=== PATIENT | female | born 1955 | race Caucasian/White ===

== ENCOUNTER 2017-01-13 10:07 | Emergency (ER) | payer BC ==
[2017-01-13] MEDS ORDERED: Aspirin SUPP* 300 MG PR ONE (10:43)
[2017-01-13] MEDS ORDERED: NS 0.9% 1000 ML* 1,000 ML IV SCH (10:45)
[2017-01-13 11:23] LABS: Hematocrit 40 % (35-47); Mean Corpuscular HGB Conc 32 g/dl (31-36); Mean Corpuscular Hemoglobin 29 pg (27-31); Mean Corpuscular Volume 89 fL (80-97); Mean Platelet Volume 9 um3 (7.4-10.4); Red Blood Count 4.54 10^6/ul (4.0-5.4); Red Cell Distribution Width 15 % (10.5-15); White Blood Count 39.6 10^3/ul (3.5-10.8)
[2017-01-13 11:28] LABS: Add Diff/Slide Review? Slide Review Added; Comments Flag Yes
[2017-01-13 11:39] LABS: Albumin 3.9 g/dL (3.2-5.2); Calcium 9.1 mg/dL (8.6-10.3); EGFR African American 97.7 (>60); Globulin 2.7 g/dL (2-4); Total Bilirubin 0.3 mg/dL (0.2-1.0); Total Protein 6.6 g/dL (6.4-8.9)
[2017-01-13 12:28] LABS: Immature Granulocytes 28 % (0-9); Metamyelocytes % 2 % (0-2); Myelocytes % 10 % (0-1); Neutrophil % 51 % (38-83); Reactive Lymph % 5 % (0-6)
[2017-01-13 12:29] LABS: RBC Morphology Normal (Normal)
[2017-01-13 12:35] VITALS: BP 145/60
--- NOTE | 2017-01-14 18:50 | ED ---
Addis Gray Thomas, scribed for Sumanth Rodriguez MD on 01/13/17 at 1125 . GI/ HPI - HPI Summary HPI Summary: The pt is a 61 y/o F with a presenting to the ED c/o two episodes of bloody stools earlier today. She describes the stool as brown with red blood and black streaks. There were no blood clots. 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 She began a chemotherapy treatment last week. The patient additionally c/o generalized weakness, malaise, abd bloating, and mild rectal discomfort. She rates her current pain 1/10. She is not on blood thinners. Her last colonoscopy was 5 years ago at [place]. She is accompanied by a female family member. - History of Current Complaint Chief Complaint: EDGIBleed Time Seen by Provider: 01/13/17 10:37 Stated Complaint: BLOOD IN STOOL Hx Obtained From: Patient Onset/Duration: Started Hours Ago - bloody stools earlier today, Resolved Timing: Intermittent Pain Intensity: 1 Associated Signs and Symptoms: Positive: Weakness - generalized, Other: - Malaise, abd bloating, mild rectal discomfort Aggravating Factor(s): Nothing Alleviating Factor(s): Nothing - Allergy/Home Medications Allergies/Adverse Reactions: Allergies Allergy/AdvReac Type Severity Reaction Status Date / Time No Known Allergies Allergy Verified 03/10/13 14:49 PMH/Surg Hx/FS Hx/Imm Hx Previously Healthy: No - Breast CA with mets to lungs Endocrine/Hematology History: Denies: Hx Diabetes Cardiovascular History: Denies: Hx Myocardial Infarction GI History: Reports: Hx Diverticulosis - Cancer History Cancer Type, Location and Year: breast cancer with mets to lungs - Surgical History Surgery Procedure, Year, and Place: LEFT MASTECTOMY Infectious Disease History: No Infectious Disease History: Denies: Traveled Outside the [place] in Last 30 Days - Family History Known Family History: Positive: Other - Cancer - Social History Alcohol Use: None Hx Substance Use: No Substance Use Type: Reports: None Hx Tobacco Use: Yes Smoking Status (MU): Former Smoker Review of Systems Positive: Other - Malaise. Negative: Fever Positive: Other - Bloody stools (two episodes), abd bloating, mild rectal discomfort Positive: Weakness - generalized All Other Systems Reviewed And Are Negative: Yes Physical Exam - Summary Physical Exam Summary: VITAL SIGNS: Reviewed. GENERAL: Patient is a well-developed and nourished female who is lying comfortable in the stretcher. ~Patient is not in any acute respiratory distress. HEAD AND FACE: Normocephalic and atraumatic. EYES: PERRLA, EOMI x 2, No injected conjunctiva. EARS: Hearing grossly intact. Ear canals and tympanic membranes are WNL. MOUTH: Oropharynx within normal limits. NECK: Supple, trachea is midline, no adenopathy, no JVD. CHEST: Symmetric, no tenderness at palpation LUNGS: Clear to auscultation bilaterally. No wheezing or crackles. CVS: RRR, S1 and S2 present, no murmurs or gallops appreciated. ABDOMEN: Soft, non-tender. No signs of distention. Positive bowel sounds. No rebound no guarding, and no masses palpated. No abdominal bruit or pulsations. EXTREMITIES: FROM in all major joints, no edema, no cyanosis or clubbing. NEURO: Alert and oriented x 3. No acute neurological deficits. Speech is normal. SKIN: Dry and warm Rectal: external hemorrhoids, no gross blood or melena. Triage Information Reviewed: Yes Vital Signs On Initial Exam: Initial Vitals Temp Pulse Resp BP Pulse Ox 98.3 F 100 20 149/87 96 01/13/17 10:11 01/13/17 10:11 01/13/17 10:11 01/13/17 10:11 01/13/17 10:11 Vital Signs Reviewed: Yes - Lucian Coma Scale Coma Scale Total: 15 Diagnostics - Vital Signs Vital Signs Temp Pulse Resp BP Pulse Ox 01/13/17 10:11 98.3 F 100 20 149/87 96 - Laboratory Result Diagrams: 01/13/17 11:00 01/13/17 11:00 Lab Statement: Any lab studies that have been ordered have been reviewed, and results considered in the medical decision making process. - EKG 11:03 Cardiac Rate: NL - 93 BPM EKG Rhythm: Sinus Rhythm EKG Interpretation: No ST elevations. Nml axis. GIGU Course/Dx - Course Assessment/Plan: The pt is a 61 y/o F with a presenting to the ED c/o two episodes of bloody stools earlier today. She describes the stool as brown with red blood and black streaks. There were no blood clots. 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 She began a chemotherapy treatment last week. The patient additionally c/o generalized weakness, malaise, abd bloating, and mild rectal discomfort. She rates her current pain 1/10. She is not on blood thinners. Her last colonoscopy was 5 years ago at [place]. She is accompanied by a female family member. Tests show WBC 39.6, Hbg 13, Hct 40, and platelets 148. CMP is within normal limits. Occult blood is negative. In the ED course, the patient was hydrated. I believed the leukocytosis is secondary to the patient being given erythropoietin. The patients H&H is stable and the occult blood is negative; therefore, I believe the patient has bleeding from hemorrhoids. Therefore, the patient will be discharged home with follow up by primary care. The patient was instructed to return if she develops any abdominal cramping, tachycardia, dizziness, or rectal bleeding. The patient understands and agrees. - Diagnoses Provider Diagnoses: hemorrhoid GI bleed Discharge - Discharge Plan Condition: Stable Disposition: HOME Patient Education Materials: Gastrointestinal Bleeding (ED) Referrals: Jennyfer Lara MD [Primary Care Provider] - 3 Days Additional Instructions: Follow up with your primary care provider in 3 days. Return to the emergency department for any new or worsening symptoms. The documentation as recorded by the Addis manuel Thomas accurately reflects the service I personally performed and the decisions made by me, Sumanth Rodriguez MD.
== END 2017-01-13 12:09 | disposition home or self-care (01) ==
LOC: ED 10:07
DX: K64.4 Residual hemorrhoidal skin tags (principal); C50.919 Malignant neoplasm of unspecified site of unspecified female breast; C78.00 Secondary malignant neoplasm of unspecified lung; R53.1 Weakness; Z87.891 Personal history of nicotine dependence
CPT/HCPCS: 36415; 80053; 82270; 85025; 85610; 85730; 86850; 86900; 86901; 93005; 99282

== ENCOUNTER 2018-09-23 17:16 | Emergency (ER) | payer BC ==
[2018-09-23 18:03] VITALS: BP 137/86
--- NOTE | 2018-09-23 22:09 | UC ---
Abdominal Pain Female HPI - HPI Summary HPI Summary: Onset yesterday of watery diarrhea and intermittent right upper quadrant pain. She denies any nausea or vomiting. Has a history of breast cancer with metastases to the lungs and is currently on chemotherapy. Has had low-grade temperature of about 100. Is concerned about her symptoms given her immunosuppressed state. - History of Current Complaint Chief Complaint: UCAbdominalPain Stated Complaint: FEVER Time Seen by Provider: 09/23/18 18:07 Hx Obtained From: Patient Onset/Duration: Sudden Onset, Lasting Hours, Still Present Timing: Constant Severity Initially: Mild Severity Currently: Mild Pain Intensity: 1 Pain Scale Used: 0-10 Numeric Location: Discrete At: RUQ Radiates: No Character: Sharp Aggravating Factor(s): Nothing Alleviating Factor(s): Nothing Associated Signs and Symptoms: Positive: Diarrhea Allergies/Adverse Reactions: Allergies Allergy/AdvReac Type Severity Reaction Status Date / Time No Known Allergies Allergy Verified 09/23/18 18:55 PMH/Surg Hx/FS Hx/Imm Hx GI/ History: Diverticulitis Cancer History: Breast Cancer - Surgical History Surgical History: Yes Surgery Procedure, Year, and Place: colon fissure repair,. Hysterectomy, LEFT MASTECTOMY, BILATERAL LUNG TUMORS REMOVED, LEFT 07/2016,RT 10/2016 - Family History Known Family History: Positive: Other - Cancer - Social History Alcohol Use: Rare Substance Use Type: None Smoking Status (MU): Former Smoker Review of Systems All Other Systems Reviewed And Are Negative: Yes Constitutional: Positive: Fever Respiratory: Positive: Negative Cardiovascular: Positive: Negative Gastrointestinal: Positive: Abdominal Pain, Diarrhea Genitourinary: Positive: Negative Physical Exam Triage Information Reviewed: Yes Appearance: Well-Appearing, No Pain Distress, Well-Nourished Vital Signs: Initial Vital Signs Temp 99.5 F 09/23/18 17:55 Pulse 93 09/23/18 17:55 Resp 18 09/23/18 17:55 BP 137/86 09/23/18 17:55 Pulse Ox 96 09/23/18 17:55 Vital Signs Reviewed: Yes Eyes: Positive: Conjunctiva Clear ENT: Positive: Hearing grossly normal Neck: Positive: Supple Respiratory Exam: Normal Cardiovascular Exam: Normal Abdomen Description: Positive: Soft, Other: - RUQ TENDERNESS. Negative: CVA Tenderness (R), CVA Tenderness (L), Distended Musculoskeletal: Positive: No Edema Neurological: Positive: Alert Psychological: Positive: Age Appropriate Behavior Skin: Negative: Rashes Abd Pain Female Course/Dx - Course Course Of Treatment: PT OFFERED TRANSPORT TO THE ED BY AMBULANCE BUT DECLINES. ADVISED THAT BY NOT TRAVELING IN A MONITORED SETTING SHE COULD BE RISKING WORSENING OF HER CONDITION THAT COULD POSE A THREAT TO HER LIFE, HEALTH AND MEDICAL SAFETY. SHE VERBALIZES UNDERSTANDING AND CONTINUES TO DECLINE AMBULANCE TRANSFER. - Differential Dx/Diagnosis Provider Diagnosis: RUQ abdominal pain Discharge - Sign-Out/Discharge Documenting (check all that apply): Patient Departure All imaging exams completed and their final reports reviewed: No Studies - Discharge Plan Condition: Stable Disposition: TRANS HIGHER LVL OF CARE FAC Patient Education Materials: Abdominal Pain (ED) Referrals: Jennyfer Lara MD [Primary Care Provider] - If Needed Additional Instructions: GO DIRECT[facility] TO [facility] [place] FOR FURTHER EVALUATION. YOU HAVE DECLINED TRANSFER TO THE ED BY AMBULANCE. BE ADVISED THAT BY NOT TRAVELING IN A MONITORED SETTING YOU COULD BE RISKING WORSENING OF YOUR CONDITION THAT COULD POSE A THREAT TO YOUR LIFE, HEALTH AND MEDICAL SAFETY. - Billing Disposition and Condition Condition: STABLE Disposition: Trans Higher Lvl of Care Fac
== END 2018-09-23 18:25 | disposition short-term general hospital (02) ==
LOC: UCEAST 17:16
DX: R10.11 Right upper quadrant pain (principal); R50.9 Fever, unspecified; C50.919 Malignant neoplasm of unspecified site of unspecified female breast; C78.00 Secondary malignant neoplasm of unspecified lung; Z87.891 Personal history of nicotine dependence
CPT/HCPCS: 99212; G0463

== ENCOUNTER 2018-09-23 18:42 | Emergency (ER) | payer BC ==
[2018-09-23] MEDS ORDERED: NS 0.9% 1000 ML** 1,000 ML IV ONE (22:35)
[2018-09-23 23:04] LABS: ABS Basophils 0.1 10^3/ul (0-0.2); ABS Eosinophils 0.2 10^3/ul (0-0.6); ABS Lymphocytes 1.7 10^3/ul (1.0-4.8); ABS Neutrophils 10.4 10^3/ul (1.5-7.7); Eosinophil % 1.3 %; Hematocrit 38 % (35-47); Hemoglobin 12.6 g/dL (12.0-16.0); Lymphocyte % 12.5 %; Mean Corpuscular HGB Conc 33 g/dL (31-36); Mean Corpuscular Hemoglobin 29 pg (27-31); Mean Corpuscular Volume 89 fL (80-97); Mean Platelet Volume 7.1 fL (7.4-10.4); Platelet Count 241 10^3/uL (150-450); Red Blood Count 4.29 10^6 /uL (3.70-4.87); Red Cell Distribution Width 15 % (10-15); White Blood Count 13.3 10^3/uL (3.5-10.8)
[2018-09-23 23:12] LABS: Activated Partial Thrombo Time 40.6 seconds (26.0-38.0); INR 1.09 (0.82-1.09)
[2018-09-23 23:21] LABS: Albumin 3.8 g/dL (3.2-5.2); Albumin/Globulin Ratio 1.6 (1-3); C Reactive Protein 86.49 mg/L (<8.01); EGFR African American 86.1 (>60); EGFR Non-African American 71.2 (>60); Globulin 2.4 g/dL (2-4); Magnesium 1.9 mg/dL (1.9-2.7); Total Bilirubin 0.5 mg/dL (0.2-1.0); Total Protein 6.2 g/dL (6.4-8.9)
[2018-09-23] MEDS ORDERED: Iohexol 300* (CONTRAST) 10 ML SDV IV ONE (23:36)
[2018-09-24 00:53] LABS: Urine Appearance Clear; Urine Bacteria Absent (Absent); Urine Bilirubin Negative (Negative); Urine Blood Negative (Negative); Urine Color Straw; Urine Glucose Negative (Negative); Urine Ketones Negative (Negative); Urine Nitrite Negative (Negative); Urine Protein Negative (Negative); Urine Red Blood Cell Absent (Absent); Urine Specific Gravity 1.005 (1.010-1.030); Urine Squamous Epithelial Cell Present (Absent); Urine Urobilinogen Negative (Negative); Urine White Blood Cell 2+(11-20/hpf) (Absent)
[2018-09-24] MEDS ORDERED: Levofloxacin TAB* 500 MG PO ONE (01:07)
[2018-09-24] MEDS ORDERED: metroNIDAZOLE TAB* 250 MG PO ONE (01:10)
--- NOTE | 2018-09-24 01:11 | ED ---
GI/ HPI - HPI Summary HPI Summary: Patient is a 63 y/o F presenting to ED with complaints of RUQ abdominal pain. Pain onset yesterday, 09/22/18, in the morning/early afternoon. Pain is intermittent and is noted to be aggravated by movement. She states that her temp was higher than normally, stating that she measured it to be 99 F at home. Nausea and diarrhea are endorsed but vomiting is denied. Patient reports that her temp is typically 97 F. She reports Hx of galbladder issues but denies Hx of stones. Patient has stage 4 breast cancer. On triage, pain is rated 1/10, nothing is noted to aggravate/alleviate Sx. Home medications and allergies are reviewed. - History of Current Complaint Chief Complaint: EDAbdPain Time Seen by Provider: 09/23/18 22:10 Stated Complaint: PAIN IN RT SIDE PER PT Hx Obtained From: Patient Onset/Duration: Started Days Ago - 09/22/18, Still Present Timing: Intermittent, Lasting Days - 09/22/18 Severity: Mild Current Severity: Mild Pain Intensity: 1 Location of Pain: RUQ Associated Signs and Symptoms: Positive: Nausea, Diarrhea, Abdominal Pain. Negative: Vomiting, Fever - on vitals, temp is 99.6 F Aggravating Factor(s): Movement, Movement Alleviating Factor(s): Nothing - Allergy/Home Medications Allergies/Adverse Reactions: Allergies Allergy/AdvReac Type Severity Reaction Status Date / Time No Known Allergies Allergy Verified 09/23/18 18:55 Home Medications: Home Medications Dexamethasone TAB* [Decadron TAB*] 8 mg PO BID 09/23/18 [History Confirmed 09/23] Levothyroxine Sodium 50 - 75 mcg PO DAILY 09/23/18 [History Confirmed 09/23/18] PMH/Surg Hx/FS Hx/Imm Hx Endocrine/Hematology History: Denies: Hx Diabetes Cardiovascular History: Denies: Hx Hypertension, Hx Myocardial Infarction, Hx Pacemaker/ICD Respiratory History: Denies: Hx Asthma GI History: Reports: Hx Diverticulosis History: Denies: Hx Dialysis, Hx Renal Disease Sensory History: Denies: Hx Hearing Aid Psychiatric History: Denies: Hx Panic Disorder - Cancer History Cancer Type, Location and Year: breast cancer with mets to lungs - Surgical History Surgery Procedure, Year, and Place: colon fissure repair,. Hysterectomy, LEFT MASTECTOMY, BILATERAL LUNG TUMORS REMOVED, LEFT 07/2016,RT 10/2016 Infectious Disease History: No Infectious Disease History: Reports: Hx Shingles - 1994 Denies: Traveled Outside the [place] in Last 30 Days - Family History Known Family History: Positive: Other - Cancer - Social History Alcohol Use: Rare Hx Substance Use: No Substance Use Type: Reports: None Hx Tobacco Use: Yes Smoking Status (MU): Former Smoker Review of Systems Negative: Fever - on vitals, temp 99.6 F Positive: Abdominal Pain, Diarrhea, Nausea. Negative: Vomiting All Other Systems Reviewed And Are Negative: Yes Physical Exam - Summary Physical Exam Summary: VITAL SIGNS: Reviewed. GENERAL: Patient is a well-developed and nourished female who is lying comfortable in the stretcher. Patient is not in any acute respiratory distress. HEAD AND FACE: No signs of trauma. No ecchymosis, hematomas or skull depressions. No sinus tenderness. EYES: PERRLA, EOMI x 2, No injected conjunctiva, no nystagmus. EARS: Hearing grossly intact. Ear canals and tympanic membranes are within normal limits. MOUTH: Oropharynx within normal limits. NECK: Supple, trachea is midline, no adenopathy, no JVD, no carotid bruit, no c- spine tenderness, neck with full ROM CHEST: Symmetric, no tenderness at palpation LUNGS: Clear to auscultation bilaterally. No wheezing or crackles. CVS: Regular rate and rhythm, S1 and S2 present, no murmurs or gallops appreciated. ABDOMEN: Soft, RUQ tenderness on deep palpation. No signs of distention. No rebound no guarding, and no masses palpated. Bowel sounds are normal. EXTREMITIES: FROM in all major joints, no edema, no cyanosis or clubbing. NEURO: Alert and oriented x 3. No acute neurological deficits. Speech is normal and follows commands. SKIN: Dry and warm Triage Information Reviewed: Yes Vital Signs On Initial Exam: Initial Vitals Temp Pulse Resp BP Pulse Ox 99.6 F 90 16 164/114 96 09/23/18 18:51 09/23/18 18:51 09/23/18 18:51 09/23/18 18:51 09/23/18 18:51 Vital Signs Reviewed: Yes Diagnostics - Vital Signs Vital Signs Temp Pulse Resp BP Pulse Ox 09/24/18 00:04 96 97 09/23/18 23:21 79 126/88 97 09/23/18 23:10 81 95 09/23/18 22:21 83 154/81 95 09/23/18 21:34 98.3 F 104 16 147/90 94 09/23/18 18:51 99.6 F 90 16 164/114 96 - Laboratory Lab Results: Lab Results 09/23/18 09/23/18 09/23/18 Range/Units 22:51 22:51 22:51 WBC 13.3 H (3.5-10.8) 10^3/uL RBC 4.29 (3.70-4.87) 10^6 /uL Hgb 12.6 (12.0-16.0) g/dL Hct 38 (35-47) % MCV 89 (80-97) fL MCH 29 (27-31) pg MCHC 33 (31-36) g/dL RDW 15 (10-15) % Plt Count 241 (150-450) 10^3/uL MPV 7.1 L (7.4-10.4) fL Neut % (Auto) 77.9 % Lymph % (Auto) 12.5 % Louisa % (Auto) 7.8 % Eos % (Auto) 1.3 % Baso % (Auto) 0.5 % Absolute Neuts (auto) 10.4 H (1.5-7.7) 10^3/ul Absolute Lymphs (auto) 1.7 (1.0-4.8) 10^3/ul Absolute Monos (auto) 1.0 H (0-0.8) 10^3/ul Absolute Eos (auto) 0.2 (0-0.6) 10^3/ul Absolute Basos (auto) 0.1 (0-0.2) 10^3/ul Absolute Nucleated RBC 0.0 10^3/ul Nucleated RBC % 0.0 INR (Anticoag Therapy) 1.09 (0.82-1.09) APTT 40.6 H (26.0-38.0) seconds Sodium 137 (135-145) mmol/L Potassium 4.0 (3.5-5.0) mmol/L Chloride 103 (101-111) mmol/L Carbon Dioxide 27 (22-32) mmol/L Anion Gap 7 (2-11) mmol/L BUN 13 (6-24) mg/dL Creatinine 0.81 (0.51-0.95) mg/dL Est GFR ( Amer) 86.1 (>60) Est GFR (Non-Af Amer) 71.2 (>60) BUN/Creatinine Ratio 16.0 (8-20) Glucose 122 H (70-100) mg/dL Calcium 9.0 (8.6-10.3) mg/dL Magnesium 1.9 (1.9-2.7) mg/dL Total Bilirubin 0.50 (0.2-1.0) mg/dL AST 15 (13-39) U/L ALT 8 (7-52) U/L Alkaline Phosphatase 71 (34-104) U/L C-Reactive Protein 86.49 H (<8.01) mg/L Total Protein 6.2 L (6.4-8.9) g/dL Albumin 3.8 (3.2-5.2) g/dL Globulin 2.4 (2-4) g/dL Albumin/Globulin Ratio 1.6 (1-3) Amylase 36 (29-103) U/L Lipase 21 (11.0-82.0) U/L Urine Color Urine Appearance Urine pH (5-9) Ur Specific [place] (1.010-1.030) Urine Protein (Negative) Urine Ketones (Negative) Urine Blood (Negative) Urine Nitrate (Negative) Urine Bilirubin (Negative) Urine Urobilinogen (Negative) Ur Leukocyte Esterase (Negative) Urine WBC (Auto) (Absent) Urine RBC (Auto) (Absent) Ur Squamous Epith Cells (Absent) Urine Bacteria (Absent) Urine Glucose (Negative) 09/24/18 Range/Units 00:11 WBC (3.5-10.8) 10^3/uL RBC (3.70-4.87) 10^6 /uL Hgb (12.0-16.0) g/dL Hct (35-47) % MCV (80-97) fL MCH (27-31) pg MCHC (31-36) g/dL RDW (10-15) % Plt Count (150-450) 10^3/uL MPV (7.4-10.4) fL Neut % (Auto) % Lymph % (Auto) % Louisa % (Auto) % Eos % (Auto) % Baso % (Auto) % Absolute Neuts (auto) (1.5-7.7) 10^3/ul Absolute Lymphs (auto) (1.0-4.8) 10^3/ul Absolute Monos (auto) (0-0.8) 10^3/ul Absolute Eos (auto) (0-0.6) 10^3/ul Absolute Basos (auto) (0-0.2) 10^3/ul Absolute Nucleated RBC 10^3/ul Nucleated RBC % INR (Anticoag Therapy) (0.82-1.09) APTT (26.0-38.0) seconds Sodium (135-145) mmol/L Potassium (3.5-5.0) mmol/L Chloride (101-111) mmol/L Carbon Dioxide (22-32) mmol/L Anion Gap (2-11) mmol/L BUN (6-24) mg/dL Creatinine (0.51-0.95) mg/dL Est GFR ( Amer) (>60) Est GFR (Non-Af Amer) (>60) BUN/Creatinine Ratio (8-20) Glucose (70-100) mg/dL Calcium (8.6-10.3) mg/dL Magnesium (1.9-2.7) mg/dL Total Bilirubin (0.2-1.0) mg/dL AST (13-39) U/L ALT (7-52) U/L Alkaline Phosphatase (34-104) U/L C-Reactive Protein (<8.01) mg/L Total Protein (6.4-8.9) g/dL Albumin (3.2-5.2) g/dL Globulin (2-4) g/dL Albumin/Globulin Ratio (1-3) Amylase (29-103) U/L Lipase (11.0-82.0) U/L Urine Color Straw Urine Appearance Clear Urine pH 6.0 (5-9) Ur Specific [place] 1.005 L (1.010-1.030) Urine Protein Negative (Negative) Urine Ketones Negative (Negative) Urine Blood Negative (Negative) Urine Nitrate Negative (Negative) Urine Bilirubin Negative (Negative) Urine Urobilinogen Negative (Negative) Ur Leukocyte Esterase 2+ A (Negative) Urine WBC (Auto) 2+(11-20/hpf) A (Absent) Urine RBC (Auto) Absent (Absent) Ur Squamous Epith Cells Present A (Absent) Urine Bacteria Absent (Absent) Urine Glucose Negative (Negative) Result Diagrams: 09/23/18 22:51 09/23/18 22:51 Lab Statement: Any lab studies that have been ordered have been reviewed, and results considered in the medical decision making process. - CT CT ABD/PEL CT Interpretation Completed By: Radiologist Summary of CT Findings: CT ABD/PEL IMPRESSION: 1. Colonic diverticulosis with acute transverse diverticulitis. 2. Hepatomegaly. THIS REPORT WAS REVIEWED BY DR. ZHU. - Ultrasound No standard instances Ultrasound Interpretation Completed By: Radiologist Summary of Ultrasound Findings: GALLBLADDER US IMPRESSION: 1. No acute findings. 2. A 1.4 cm left hepatic cyst. THIS REPORT WAS REVIEWED BY DR. ZHU. Re-Evaluation - Re-Evaluation First Eval Re-Evaluation Time: 01:07 Comment: Results of labs and tests were discussed with the patient. The patient will be discharged to home with Flagyl and Levaquin prescription and follow up with PCP. Strict return precautions were given. Patient is agreeable with plan. GIGU Course/Dx - Course Course Of Treatment: Patient is a 63 y/o F presenting to ED with complaints of RUQ abdominal pain. Pain onset yesterday, 09/22/18, in the morning/early afternoon. Pain is intermittent and is noted to be aggravated by movement. She states that her temp was higher than normally, stating that she measured it to be 99 F at home. Nausea and diarrhea are endorsed but vomiting is denied. Patient reports that her temp is typically 97 F. She reports Hx of galbladder issues but denies Hx of stones. Patient has stage 4 breast cancer. On physical exam, RUQ tenderness on deep palpation is noted. Labs showed WBC 13.3, MPV 7.1 , absolute neuts 10.4, absolute monos 1, APTT 40.6, glucose 122, CRP 86.49, total protein 6.2, lipase 21, amylase 36. UA showed 2+ leukocyte esterase, 2+ WBC, squamous epith cells present. GALLBLADDER US IMPRESSION: 1. No acute findings. 2. A 1.4 cm left hepatic cyst. CT ABD/PEL IMPRESSION: 1. Colonic diverticulosis with acute transverse diverticulitis. 2. Hepatomegaly. During ED course, patient received fluids, flagyl 500 mg PO, Levaquin 500 mg PO, and heparin 5 ml FLUSH ONCE. Results of labs and tests were discussed with the patient. The patient will be discharged to home with Flagyl and Levaquin prescription and follow up with PCP. Strict return precautions were given. Patient is agreeable with plan. - Diagnoses Provider Diagnoses: UTI (urinary tract infection), Diverticulitis Discharge - Sign-Out/Discharge Documenting (check all that apply): Patient Departure - discharge Patient Received Moderate/Deep Sedation with Procedure: No - Discharge Plan Condition: Stable Disposition: HOME Prescriptions: Levofloxacin TAB* [Levaquin TAB*] 500 mg PO DAILY #7 tab metroNIDAZOLE [Flagyl 500 MG TAB] 500 mg PO TID #20 tab Patient Education Materials: Diverticulitis (ED), Urinary Tract Infection in Women (ED) Referrals: Jennyfer Lara MD [Primary Care Provider] - 3 Days Additional Instructions: PLEASE RETURN TO THE ED IMMEDIATELY FOR WORSENING OR CONCERNING SYMPTOMS. FOLLOW UP WITH YOUR PRIMARY CARE PHYSICIAN WITHIN THREE DAYS. - Attestation Statements Document Initiated by Scribe: Yes Documenting Scribe: SIMA MOSES Provider For Whom Scribe is Documenting (Include Credential): GODFREY ZHU MD Scribe Attestation: SIMA Gray, scribed for GODFREY ZHU MD on 09/24/18 at 0308. Status of Scribe Document: Ready
[2018-09-24 01:53] VITALS: BP 130/70
--- NOTE | 2018-09-26 06:12 | PN ---
Progress Note - Progress Note Date of Service: 09/26/18 Note: patient's urine culture grew strep group B of 50-75,000. Patient placed on Levaquin. Should be sensitive to such.
== END 2018-09-24 01:41 | disposition home or self-care (01) ==
LOC: ED 18:42
DX: N39.0 Urinary tract infection, site not specified (principal); K57.92 Diverticulitis of intestine, part unspecified, without perforation or abscess without bleeding; Z87.891 Personal history of nicotine dependence; Z79.899 Other long term (current) drug therapy; R16.0 Hepatomegaly, not elsewhere classified; K76.89 Other specified diseases of liver
CPT/HCPCS: 36415; 74177; 76705; 80053; 81003; 81015; 82150; 83690; 83735; 85025; 85610; 85730; 86140; 87077; 87086; 99284; A9270-GY; J1642; Q9967

== ENCOUNTER 2018-11-26 06:22 | Day surgery (SDC) | payer BC ==
[2018-11-26] MEDS ORDERED: Midazolam* 1 MG/ML 2 ML VIAL (2 MG) ONE (07:02)
[2018-11-26] MEDS ORDERED: fentaNYL* 50 MCG/ML 2 ML VIAL (100 MCG VIAL) ONE (07:02)
[2018-11-26 08:07] VITALS: BP 141/81
[2018-11-26] MEDS ORDERED: Lidocaine 1% MPF ** 5 ML VIAL ONE (08:21)
[2018-11-26] MEDS ORDERED: acetaZOLAMIDE TAB* 250 MG ONE (08:21)
[2018-11-26] MEDS ORDERED: Ketorolac 0.5% OPHTH (NF) 0.5 % 5 ML BTL ONE (08:21)
[2018-11-26] MEDS ORDERED: Povidone Iodine 5% OPTH* 30 ML BTL ONE (08:21)
[2018-11-26] MEDS ORDERED: Phenylephrine OPHTH SOL 2.5%* 2 ML ONE (08:21)
[2018-11-26] MEDS ORDERED: Neomycin/Polymy/Dex OPHTH.OIN* 3.5 GM ONE (08:21)
[2018-11-26] MEDS ORDERED: Tropicamide 1% OPTH.SOL* BTL ONE (08:21)
[2018-11-26] MEDS ORDERED: Cyclopentolate 1% OPTH.SOL* 2 ML BTL ONE (08:21)
[2018-11-26] MEDS ORDERED: Tetracaine 0.5% OPTH.SOL 4 ML* 1 DROP BTL ONE (08:21)
--- NOTE | 2018-11-26 08:39 | OP ---
DATE OF OPERATION: 11/26/18 - [facility] DATE OF : 53 SURGEON: Zay Freeman MD ANESTHESIA: Monitored anesthesia care. PREOPERATIVE DIAGNOSIS: Cataract, left eye. POSTOPERATIVE DIAGNOSIS: Cataract, left eye. OPERATIVE PROCEDURE: Extracapsular cataract extraction of the left eye with intraocular lens implant. IMPLANT: SN60WF 22.0 diopter lens to the left eye. COMPLICATIONS: None. DESCRIPTION OF PROCEDURE: The patient was given phenylephrine 2.5 % and cyclopentolate 1% eye drops to the operative eye in the preoperative area. The patient was taken to the operating room where a time-out was taken to identify the correct patient, site, and side of surgery. The patient's left eye was prepped and draped in the usual sterile fashion with 5% Betadine. A second time- out was taken to verify the correct patient, side, and site of surgery, as well as the correct lens implant. A lid speculum was placed to the left eye. A 1mm paracentesis blade was used to make a clear corneal incision. Preservative-free 1% lidocaine was injected into the anterior chamber. DisCoVisc was then injected into the anterior chamber. A 2.75 mm keratome blade was used to make a triplanar incision. A cystotome initiated a capsulorrhexis, which was completed with Utrata forceps in a continuous and curvilinear manner. Hydrodissection of the lens was performed with BSS on a cannula. The lens could be spun in a capsular bag. The phacoemulsification handpiece was used with a divide-and- conquer technique to remove the nucleus. The I/A handpiece then removed the residual cortical lens material. DisCoVisc was injected to inflate the capsular bag. The planned SN60WF 22.0 diopter lens was injected into the capsular bag. The residual DisCoVisc was removed from the eye with the I/A handpiece. The corneal incisions were hydrated and no leaks occurred at physiologic pressure around 20 mmHg per palpation. The lid speculum was removed and drapes were removed. Maxitrol ointment was placed to the surface of the operative eye. An adhesive patch and shield was then placed on the operative eye. The patient was taken to the postoperative area in stable condition. [id number]/[facility] #: [id number] [facility]
[2018-11-26] MEDS ORDERED: Propofol* 10 MG/ML 20 ML BTL ONE (09:02)
== END 2018-11-26 08:15 | disposition home or self-care (01) ==
LOC: OREAST 06:22
PROVIDERS: ATTEND Student in an Organized Health Care Education/Training Program
DX: H25.812 Combined forms of age-related cataract, left eye (principal); Z85.3 Personal history of malignant neoplasm of breast; Z87.891 Personal history of nicotine dependence; R00.2 Palpitations; E03.9 Hypothyroidism, unspecified
CPT/HCPCS: A9270-GY; J2250; J2704; J3010; V2632

== ENCOUNTER 2019-01-25 16:12 | Emergency (ER) | payer BC ==
--- OUTSIDE RECORDS SUMMARY | 2019-01-25 16:17 | XMS REPORT | Continuity of Care Document ---
:1955 External Reference #:[id number] Author Name Zay Freeman M.D. Address [address] [place] [id number] Care Team Providers Name Role Phone Jennyfer Lara M.D. - Internal Medicine Care Team Information Help Desk Support Specialist Problems Active Problems Provider Date Malignant neoplasm of female breast Zay Freeman M.D. Onset: 08/01/2018 Combined form of senile cataract Zay Freeman M.D. Onset: 08/01/2018 Presence of intraocular lens Zay Freeman M.D. Onset: 11/20/2018 Social History Type Date Description Comments Sex Unknown ETOH Use Occasionally consumes alcohol Tobacco Use Start: Unknown End: Patient is a former smoker QUIT 7 YRS AGO Unknown Recreational Drug Use Denies Drug Use Smoking Status Reviewed: 12/13/18 Patient is a former smoker QUIT 7 YRS AGO Allergies, Adverse Reactions, Alerts Active Allergies Reaction Severity Comments Date Perfume 01/20/2015 Latex 01/20/2015 Medications Active Medications SIG Qnty Indications Ordering Date Provider Artificial Tears Zay 11/15/2018 1-0.3% Bradley Freeman Solution Lidocaine-Prilocaine Sofi No Bradley 2.5-2.5% Cream Levothyroxine Sodium Jennyfer Lara Bradley 50mcg Tablets Ibuprofen Take 1 Tablet By Unknown 600mg Tablets Mouth Every 6 Hours as Needed For Pain Dexamethasone 2 tablets 2 times per Sofi No 4mg day 2 Days before and M.DGordy Tablets the day of immunotherapy treatment Multivitamins daily Unknown Capsules Vitamin D3 Unknown 2000Unit Capsules Herceptin q 3 weeks Unknown 150mg Solution Rec History Medications Ciprofloxacin HCL instill one drop 5ml Zay Freeman, 11/15/2018 - 0.3% in the right eye M.D. 12/12/2018 Solution three times a day, start the day before surgery Ketorolac Tromethamine use one drop in 10ml Zay Freeman, 11/15/2018 - 0.5% the right eye M.D. 12/12/2018 Solution three times a day, start the day before surgery Prednisolone Acetate 1 drops right eye 10ml Zay Freeman, 11/15/2018 - 1% three times a day. M.D. 12/12/2018 Suspension taper as directed Immunizations Description No Information Available Vital Signs Description No Information Available Results Description No Information Available Procedures Date Code Description Status 11/26/2018 50038 Extracapsular Cataract Extraction W/Intraocular Lens Completed 11/19/2018 97875 Extracapsular Cataract Extraction W/Intraocular Lens Completed 11/15/2018 91040 Ophthalmic Biometry Completed 11/15/2018 78896 Ophthalmic Biometry Completed 11/15/2018 31165 Est Patient Intermediate Exam Completed 10/24/2018 45429 Est Patient Intermediate Exam Completed 08/01/2018 88364 New Patient Comprehensive Exam Completed Medical Devices Description No Information Available Encounters Description No Information Available Assessments Date Code Description Provider 12/13/2018 Z96.1 Presence of intraocular lens Zay Freeman M.D. 12/13/2018 H52.4 Presbyopia Zay Freeman M.D. 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 11/27/2018 Z96.1 Presence of intraocular lens Zay Freeman M.D. 11/26/2018 H25.812 Combined forms of age-related cataract, Zay Freeman M.D. left eye 11/20/2018 H25.812 Combined forms of age-related cataract, Zay Freeman M.D. left eye 11/20/2018 Z96.1 Presence of intraocular lens Zay Freeman M.D. 11/19/2018 H25.811 Combined forms of age-related cataract, Zay Freeman M.D. right eye 11/15/2018 H25.811 Combined forms of age-related cataract, Zay Freeman M.D. right eye 11/15/2018 H25.812 Combined forms of age-related cataract, Zay Freeman M.D. left eye 11/08/2018 H25.811 Combined forms of age-related cataract, Zay Freeman M.D. right eye 11/08/2018 H25.812 Combined forms of age-related cataract, Zay Freeman M.D. left eye 10/24/2018 H25.813 Combined forms of age-related cataract, Zay Freeman M.D. bilateral 08/01/2018 H25.813 Combined forms of age-related cataract, Zay Freeman M.D. bilateral Plan of Treatment 12/13/2018 - Zay Freeman M.D.Z96.1 Presence of intraocular lensComments: Smoking can increase the risk of developing or worsening any eye related disease , as well as affect your overall health. If you are a smoker, we strongly recommend that you quit.If you are not a smoker, we strongly recommend that you do not start. Your lens implant looks stable in both eyes at this time. You should be done, or almost done with your drops at this time according to your surgical calendar. I have given you a prescription for glasses. If you have any questions, please feel free to call our office at .H52.4 PresbyopiaComments:You have presbyopia. This is when the lens in your eye loses the ability to change focus, and happens as we age. A pair of reading glasses will help you see up close. YOU CAN TRY +2.00 OR +2.50 OVER THE COUNTER READING GLASSES FOR YOUR NEAR VISION.H43.812 Vitreous degeneration, left eyeFollow up:1 Year Follow Up DFE You can expect to have your eyes dilated at your next visit. If Dr. Freeman orders any additional testing, it may require extra time. We recommend that you bring sunglasses, as dilation drops often make you light sensitive until they wear off. We always recommend you bring someone to drive you home if you are uncomfortable driving with your eyes dilated. If you have any questions before your next visit, feel free to call our office at . Functional Status Description No Information Available Mental Status Description No Information Available Referrals Description No Information Available
[2019-01-25 16:37] VITALS: BP 148/89
--- NOTE | 2019-01-25 17:05 | UC ---
Complaint Female HPI - HPI Summary HPI Summary: 63-year-old female who states that she had an IV treatment of medication last week for stage IV breast cancer. She has a port in place. She states a couple days after her treatment she ate some eggs salad with Daquan lattice and the next day she awakened with an upset stomach and diarrhea. She has had diarrhea over the past 3 days which resolves when she takes and antidiarrheal medicine. When that wears off she has diarrhea again. She states in the past 24 hours she 's had 6 bouts of diarrhea. No nausea, no abdominal pain however she states that her urine smells very strongly. She states her diarrhea is more yellow and soft as opposed to watery diarrhea. No other family members are ill. She states today she had a fever for 101 about 5 hours ago, took Tylenol and felt much better and now her fever has resolved. She did state that in the past when she had the IV treatment for the breast cancer she would get diarrhea however she gets this treatment every 3 months and the past few time she's not had diarrhea. Patient has well water at home however she states she drinks bottled water. No other family members are ill. - History Of Current Complaint Chief Complaint: UCGI Stated Complaint: URINARY COMPLAINT Time Seen by Provider: 01/25/19 16:47 Hx Obtained From: Patient ?: No Onset/Duration: Gradual Onset Timing: Intermittent Severity Initially: Mild Severity Currently: Mild Pain Intensity: 2 Aggravating Factor(s): Nothing Alleviating Factor(s): Nothing Associated Signs And Symptoms: Positive: Fever - She had a fever over 101 about 5 hours ago, took some Tylenol and that has resolved and has not returned., Back Pain - Patient has some mild low back pain today. - Allergies/Home Medications Allergies/Adverse Reactions: Allergies Allergy/AdvReac Type Severity Reaction Status Date / Time latex Allergy SKIN Verified 01/25/19 16:37 IRRITATION, RASH Home Medications: Home Medications Acetaminophen [Tylenol] 325 mg PO Q6HR 01/25/19 [History Confirmed 01/25/19] Loperamide HCl [Anti-Diarrheal] 2 mg PO Q6HR 01/25/19 [History Confirmed ] Trastuzumab* [Herceptin*] 150 mg IV SEE INSTRUCTIONS 01/25/19 [History Confirmed 01/25/19] PMH/Surg Hx/FS Hx/Imm Hx Previously Healthy: Yes Endocrine History: Thyroid Disease Cancer History: Breast Cancer - Patient currently gets treatments through a port every 3 months for stage IV breast cancer. - Surgical History Surgical History: Yes Surgery Procedure, Year, and Place: colon fissure repair,. Hysterectomy, LEFT MASTECTOMY, BILATERAL LUNG TUMORS REMOVED, LEFT 07/2016,RT 10/2016 - Family History Known Family History: Positive: Other - Cancer - Social History Alcohol Use: Rare Substance Use Type: None Smoking Status (MU): Former Smoker Amount Used/How Often: 1 PPD X 40 YEARS Have You Smoked in the Last Year: No When Did the Patient Quit Smoking/Using Tobacco: 12 YEARS AGO Review of Systems All Other Systems Reviewed And Are Negative: Yes Constitutional: Positive: Fever - Fever earlier today which has resolved. Gastrointestinal: Positive: Diarrhea - Diarrhea approximate 6 times a day past 24 hours. Denies any nausea or vomiting. She denies abdominal pain however does state that she is extremely bloated. She states that's normalfor her to get bloated whenever she has any kind of GI upset. Is Patient Immunocompromised?: No Physical Exam Triage Information Reviewed: Yes Appearance: Well-Appearing, No Pain Distress, Well-Nourished Vital Signs: Initial Vital Signs Temp 98.2 F 01/25/19 16:30 Pulse 98 01/25/19 16:30 Resp 16 01/25/19 16:30 BP 148/89 01/25/19 16:30 Pulse Ox 95 01/25/19 16:30 Vital Signs Reviewed: Yes Eyes: Positive: Conjunctiva Clear ENT: Positive: Hearing grossly normal, Pharynx normal, TMs normal, Uvula midline Neck: Positive: Supple, Nontender, No Lymphadenopathy Respiratory: Positive: Lungs clear, Normal breath sounds, No respiratory distress, No accessory muscle use Cardiovascular: Positive: RRR, No Murmur, Pulses Normal, Brisk Capillary Refill Abdomen Description: Positive: Nontender, No Organomegaly, Soft, Distended - Mildly bloated but nontender.. Negative: CVA Tenderness (R), CVA Tenderness (L) , Guarding, Hepatomegaly, McBurney's Point Tenderness, Splenomegaly Bowel Sounds: Positive: Hyperactive Musculoskeletal Exam: Normal Musculoskeletal: Positive: Other: - Calves are nontender bilaterally Neurological Exam: Normal Psychological Exam: Normal Skin Exam: Normal Complaint Female Dx - Course Course Of Treatment: Urinalysis shows possible urinary tract infection. I'm going to treat person with Bactrim DS one tab by mouth twice a day 5 days. She can continue her antidiarrheal medication but she is to increase fluids, she is to avoid spicy foods and fatty foods over the next few days. If she develops abdominal pain, worsening diarrhea and/or vomiting to the point where she feels lightheaded she is to go to the emergency room. If she develops fever or worsening symptoms she is to go to the emergency room as well. Patient is agreeable to this plan of action. - Differential Dx/Diagnosis Provider Diagnosis: UTI (urinary tract infection), Diarrhea Discharge ED - Sign-Out/Discharge Documenting (check all that apply): Patient Departure All imaging exams completed and their final reports reviewed: No Studies - Discharge Plan Condition: Fair Disposition: HOME Prescriptions: Sulfamethox/Trimethoprim DS* [Bactrim DS 800/160 TAB*] 1 tab PO BID 5 Days #10 tab Patient Education Materials: Urinary Tract Infection in Women (DC) Referrals: Jennyfer Lara MD [Primary Care Provider] - Additional Instructions: Increase fluids, take the Bactrim with food. Definite follow-up in the emergency room if you can chin you to develop fever, chills, worsening symptoms , abdominal pain or vomiting to the point where he feels like you're lightheaded or feeling like you will pass out. Definite follow-up with your primary care provider if no improvement by Monday. - Billing Disposition and Condition Condition: FAIR Disposition: Home - Attestation Statements Provider Attestation: Per institutional requirements, I have reviewed the chart, however, I was not consulted specifically or made aware of this patient by the midlevel provider. I did not personally evaluate, interact with , or disposition this patient.
--- NOTE | 2019-01-28 16:00 | UC ---
- Progress Note Progress Note: Urine culture showed 10-25,000 CFU/ML of enterococcus faecium, patient had been started on Bactrim. The nurses will call to see if she is doing better. If she is improved then she can continue the Bactrim. If she is no better then we will have to change the antibiotic. Course/Dx - Diagnoses Provider Diagnoses: UTI (urinary tract infection), Diarrhea Discharge ED - Sign-Out/Discharge Documenting (check all that apply): Post-Discharge Follow Up All imaging exams completed and their final reports reviewed: No Studies - Discharge Plan Condition: Fair Disposition: HOME Prescriptions: Sulfamethox/Trimethoprim DS* [Bactrim DS 800/160 TAB*] 1 tab PO BID 5 Days #10 tab Patient Education Materials: Urinary Tract Infection in Women (DC) Referrals: Jennyfer Lara MD [Primary Care Provider] - Additional Instructions: Increase fluids, take the Bactrim with food. Definite follow-up in the emergency room if you can chin you to develop fever, chills, worsening symptoms , abdominal pain or vomiting to the point where he feels like you're lightheaded or feeling like you will pass out. Definite follow-up with your primary care provider if no improvement by Monday. - Billing Disposition and Condition Condition: FAIR Disposition: Home
== END 2019-01-25 17:27 | disposition home or self-care (01) ==
LOC: UCEAST 16:12
DX: N39.0 Urinary tract infection, site not specified (principal); R19.7 Diarrhea, unspecified; C50.919 Malignant neoplasm of unspecified site of unspecified female breast; Z87.891 Personal history of nicotine dependence; Z91.040 Latex allergy status; Z79.899 Other long term (current) drug therapy
CPT/HCPCS: 81003; 87077; 87086; 87186; 99212; G0463